=== PATIENT | female | born 1950 | race Two or more races ===

== ENCOUNTER 2019-05-27 17:38 | Inpatient (IN) | payer BC, OTHER ==
[~2019-05-27] VITALS: Ht 165.1 cm; Wt 75.3 kg
--- NOTE | 2019-05-27 17:40 | NUR ---
[place] [employer] [employer] C/O PALPITATION, SOB, ANXIETY, BG 132. PATIENT A/OX4, NO SOB NOTED, NEEDS ATTENDED, KEPT COMFORTABLE.
--- NOTE | 2019-05-27 17:50 | NUR ---
DR. GARCIA AT BEDSIDE FOR EVAL.
[2019-05-27 18:11] LABS: BASOPHILS % (AUTO) 0.4 % (0.0-2.0); EOSINOPHILS % (AUTO) 1.7 % (0.0-6.0); HEMATOCRIT 39 % (33-45); HEMOGLOBIN 13.3 g/dL (11.5-14.8); LYMPHOCYTES # (AUTO) 2.9 /CMM (0.8-4.8); LYMPHOCYTES % (AUTO) 38.2 % (20.0-44.0); MEAN CORPUSCULAR HGB CONC 34 g/dl (31.0-36.0); MEAN CORPUSCULAR VOLUME 89 fL (82-100); MONOCYTES # (AUTO) 0.6 /CMM (0.1-1.30); MONOCYTES % (AUTO) 7.6 % (2.0-12.0); NEUTROPHILS % (AUTO) 52.1 % (43.0-81.0); PLATELET COUNT (AUTO) 191 /CMM (150-450); RED BLOOD CELL COUNT(AUTO) 4.39 MIL/uL (4.0-5.2); WHITE BLOOD COUNT (AUTO) 7.6 K/uL (4.3-11.0)
[2019-05-27 18:18] LABS: CALCIUM, SERUM 8.6 mg/dL (8.5-10.1); CARBON DIOXIDE 25 mmol/L (21-32); CHLORIDE 104 mmol/L (98-107); CREATININE 0.7 mg/dL (0.6-1.3); GLUCOSE 164 mg/dL (74-106); POTASSIUM 4.1 mmol/L (3.5-5.1); SODIUM SERUM 137 mmol/L (136-145); UREA NITROGEN, BLOOD 21 mg/dL (7-18)
[2019-05-27] MEDS ORDERED: OMEP40CA13 PO (18:56)
--- NOTE | 2019-05-27 19:10 | NUR ---
Alvin costello in [facility] - 05/27/19 at 1910 by GURVINDER SERG NICK
--- NOTE | 2019-05-27 19:24 | NUR ---
PT RECEIVED FROM HANS GUIDO FOR BELLA.
[2019-05-27] MEDS ORDERED: ASPIRIN 325 MG TABLET ONE (19:29)
[2019-05-27] MEDS ORDERED: NITROGLYCERIN PACKET 1 GM PACKET TOP ONE (19:30)
[2019-05-27] MEDS ORDERED: IV NS 0.9% 1,000 ML BAG IV ONE (19:30)
[2019-05-27] MEDS ORDERED: ASPIRIN 325 MG TABLET PO ONE (19:30)
--- NOTE | 2019-05-27 19:35 | NUR ---
SPOKE WITH STEFANIE BIOINFORMATICS TEAM MEMBER FOR CLINICAL INFORMATION. PT IS TO BE TRABSFERRED. NO HOSPITAL INFO AT THIS TIME. WILL CALL BACK FOR INFO
--- NOTE | 2019-05-27 20:07 | NUR ---
NITRO BID REFUSED D/T NO CHEST PAIN AT THE TIME OF MED ADMINSTRATION
--- NOTE | 2019-05-27 22:02 | NUR ---
CALLED FOR TELE BED
--- NOTE | 2019-05-27 22:04 | NUR ---
RECIEVED BED 103T
--- NOTE | 2019-05-27 22:18 | NUR ---
REPORT GIVEN TO HANS WINKLER FOR BELLA.
--- NOTE | 2019-05-27 22:23 | NUR ---
RECEIVED REPORT FROM HANS GLASS IN ER.
--- NOTE | 2019-05-27 22:40 | NUR ---
PT TRANSPORTED TO UNIT ON [facility] WITH EMT AND RN AT BEDSIDE W/ [facility] PROTOCOL. NAD NOTED DURING TRANSPORT. PT AMBULATED FROM [facility] TO BED
--- NOTE | 2019-05-27 22:45 | NUR ---
RETAIL SALES ASSOCIATE SEASONAL OPENING NOTES: RECEIVED PT FROM ER VIA [facility] ACCOMPANIED BY HANS GUNTER. ADMISSION DX IS CHEST PAIN. PMD OF GERD. PT AMBULATED TO BED W/OUT ASSIST. NOTED W/ STEADY GAIT. PT IS A&OX4. PT STATED SHE HAS NO CHEST PAIN AT THIS TIME. NO ACUTE RESPIRATORY DISTRESS OR SOB NOTED. PT HAS LEFT WRIST IV #20, PATENT AND FLUSHING. ALL ORDERS NOTED AND WILL BE CARRIED OUT. SAFETY MEASURES IN PLACE, CALL LIGHT WITHIN REACH. WILL CONTINUE TO MONITOR.
[2019-05-27] MEDS ORDERED: HYDROCODONE/APAP 5/325MG 1 EACH TABLET PO PRN (23:30)
[2019-05-27] MEDS ORDERED: ACETAMINOPHEN 325 MG TABLET PO PRN (23:30)
[2019-05-28 00:11] VITALS: BP 117/86
[2019-05-28 04:16] LABS: BASOPHILS % (AUTO) 0.3 % (0.0-2.0); EOSINOPHILS % (AUTO) 2.2 % (0.0-6.0); HEMATOCRIT 41 % (33-45); HEMOGLOBIN 13.6 g/dL (11.5-14.8); LYMPHOCYTES # (AUTO) 2.4 /CMM (0.8-4.8); LYMPHOCYTES % (AUTO) 41.9 % (20.0-44.0); MEAN CORPUSCULAR HGB CONC 33 g/dl (31.0-36.0); MEAN CORPUSCULAR VOLUME 89 fL (82-100); MONOCYTES # (AUTO) 0.4 /CMM (0.1-1.30); MONOCYTES % (AUTO) 7.7 % (2.0-12.0); NEUTROPHILS # (AUTO) 2.7 /CMM (1.8-8.9); NEUTROPHILS % (AUTO) 47.9 % (43.0-81.0); PLATELET COUNT (AUTO) 177 /CMM (150-450); WHITE BLOOD COUNT (AUTO) 5.7 K/uL (4.3-11.0)
[2019-05-28 04:28] LABS: CALCIUM, SERUM 8.7 mg/dL (8.5-10.1); CREATININE 0.7 mg/dL (0.6-1.3); POTASSIUM 4.5 mmol/L (3.5-5.1)
--- NOTE | 2019-05-28 06:59 | NUR ---
LEAD ANDROID DEVELOPER CLOSING NOTES: PT RESTING IN BED A&OX4 ON TELE MONITOR SHOWING SINUS RHYTHM. PT AMBULATORY. NPO TODAY EXCEPT MEDS. HAS LABS IN AM AND CORONARY CT ANGIO TODAY. SAFETY MEASURES IN PLACE, CALL LIGHT WITHIN REACH. WILL ENDORSE TO AM NURSE FOR BELLA.
--- NOTE | 2019-05-28 07:10 | NUR ---
RN OPENING NOTE: RECEIVED PATIENT IN BED. AWAKE, ALERT AND ORIENTED X4. ON TELE MONITOR WITH SINUS RHYTHM WITH PVC NOTED. NO SOB, NOT IN RESPIRATORY DISTRESS, ON ROOM AIR WITH SATURATION >92%. IV SITE ON L HAND G20 SALINE LOCK CLEAN, DRY AND PATENT. PATIENT ON NPO EXCEPT MEDICATIONS FOR UPCOMING CT ANGIO WITH 3D IMAGE SCHEDULED. CONSENTS TO BE SIGNED AFTER DR. AARON SEES PATIENT. NO PAIN REPORTED NOR NOTED. PATIENT DENIES ANY CHEST PAIN. CALL LIGHT WITHIN REACH. BED LOCKED, LOW AND AT SEMI-BERRY'S POSITION. SIDE RAILS UP X2. WILL CONTINUE TO MONITOR.
[2019-05-28 08:00] VITALS: BP 131/70
[2019-05-28] MEDS: PANTOPRAZOLE 40 MG TABLET.DR PO SCH (08:57)
[2019-05-28] MEDS: ASPIRIN 81 MG TAB.CHEW PO SCH (08:57)
--- NOTE | 2019-05-28 09:15 | NUR ---
RN NOTE: PATIENT WAS SEEN BY DR. AARON AND PROCEDURE WAS EXPLAINED. PATIENT ASKED NURSE TO RECAP THE PURPOSE OF THE PROCEDURE, NURSE EXPLAINED AND OFFERED TO CONTACT PHYSICIAN AGAIN IF PATIENT HAS ANY ADDITIONAL CONCERNS AND QUESTIONS REGARDING THE PROCEDURE. PATIENT DECLINED AND SIGNED THE CONSENT FORMS.
[2019-05-28] MEDS ORDERED: IOHEXOL-350 100 ML VIAL IV ONE (11:53)
[2019-05-28] MEDS ORDERED: METOPROLOL TARTRATE INJ 5 MG/5 ML AMPUL ONE (11:54)
[2019-05-28] MEDS ORDERED: IV NS 0.9% 250 ML IV ONE (11:54)
[2019-05-28 12:00] VITALS: BP 110/71
[2019-05-28] MEDS ORDERED: NITROGLYCERIN 0.4 MG/TAB BOTTLE SL ONE (12:00)
[2019-05-28] MEDS ORDERED: IV NS 0.9% 500 ML IV PRN (12:00)
[2019-05-28] MEDS ORDERED: METOPROLOL TARTRATE INJ 5 MG/5 ML AMPUL IVP PRN (12:00)
--- NOTE | 2019-05-28 13:00 | NUR ---
RN NOTE: PATIENT CAME BACK FROM CTA WITH 3D IMAGE PROCEDURE IN STABLE CONDITION.
[2019-05-28 16:00] VITALS: BP 104/55
--- NOTE | 2019-05-28 19:10 | NUR ---
RN CLOSING NOTE: PATIENT IN BED. AWAKE, ALERT AND ORIENTED X4. ON TELE MONITOR WITH SINUS RHYTHM WITH PVC NOTED. NO SOB, NOT IN RESPIRATORY DISTRESS, ON ROOM AIR WITH SATURATION >92%. IV SITE ON L HAND G20 AND LAC G18 SALINE LOCK CLEAN, DRY AND PATENT. ON REGULAR DIET POST CTA PROCEDURE. NO PAIN REPORTED NOR NOTED. PATIENT DENIES ANY CHEST PAIN. CALL LIGHT WITHIN REACH. BED LOCKED, LOW AND AT SEMI-BERRY'S POSITION. SIDE RAILS UP X2. ENDORSED TO ONCOMING SHIFT FOR BELLA.
--- NOTE | 2019-05-28 19:10 | NUR ---
HOME ENERGY AUDITOR OPENING NOTES RECEIVED PATIENT IN BED AWAKE ALERT AND ORIENTED X4, RESPIRATIONS EVEN AND UNLABORED WITH EQUAL RISE AND FALL OF CHEST, DENIES ANY PAIN OR DISCOMFORT AT THIS TIME , IV SITE TO LEFT WRIST AND LEFT AC INTACT AND PATENT, NO REDNESS, NO INFILTRATION PRESENT, ON CEMENTER MACHINE APPLICATOR SR WITH OCCASIONAL PVC. DENIES CHEST PAIN, ORIENTED TO STAFF AND CALL LIGHT KEPT WITHIN REACH, SAFETY PRECAUTIONS IN PLACE, ALL NEEDS ATTENDED WILL CONTINUE TO MONITOR.
[2019-05-28 20:00] VITALS: BP 118/81
[2019-05-28] MEDS ORDERED: ATORVASTATIN 10 MG TABLET PO SCH (22:00)
[2019-05-29] VITALS: BP 101/59
[2019-05-29 04:00] VITALS: BP 113/65
[2019-05-29 04:27] VITALS: BP 113/65
--- NOTE | 2019-05-29 06:17 | NUR ---
GEODETIC COMPUTATOR CLOSING NOTES PATIENT IN BED AWAKE ALERT AND ORIENTED X4, RESPIRATIONS EVEN AND UNLABORED WITH EQUAL RISE AND FALL OF CHEST, DENIES ANY PAIN OR DISCOMFORT AT THIS TIME , IV SITE TO LEFT WRIST AND LEFT AC INTACT AND PATENT, NO REDNESS, NO INFILTRATION PRESENT, ON MANAGER FOOD BEVERAGE SR WITH PVC'S 70, NO DISTRESS PRESENT, NO C/O OF CHEST PAIN THROUGHOUT SHIFT. CALL LIGHT KEPT WITHIN REACH, SAFETY PRECAUTIONS IN PLACE, ALL NEEDS WERE ATTENDED WILL CONTINUE TO MONITOR AND ENDORSE TO NEXT SHIFT.
--- NOTE | 2019-05-29 07:12 | NUR ---
CHARGE MACHINE OPERATOR OPENING NOTES RECEIVED PATIENT FROM PRODUCE FIELD MERCHANDISER NURSE. PATIENT IS ASLEEP IN BED. RESPIRATIONS ARE EVEN AND UNLABORED. PATIENT IS ON ROOM AIR, SATURATING WELL. NO SIGNS AND SYMPTOMS OF RESPIRATORY DISTRESS NOTED. PATIENT IS ON TELE MONITOR, SINUS RHYTHM WITH PVC NOTED ON THE MONITOR. PATIENT IS AMBULATORY WITH ASSIST. IV ON LEFT WRIST #20 AND LEFT AC #18. INTACT, PATENT AND FLUSHED WELL. NO SIGNS AND SYMPTOMS OF INFECTION PRESENT. VITAL SIGNS ARE STABLE, PENDING CARDIAC CONSULT. SAFETY MAINTAINED, CALL LIGHT WITHIN REACH. WILL CONTINUE TO MONITOR.
[2019-05-29] MEDS: PANTOPRAZOLE 40 MG TABLET.DR PO SCH (07:30)
[2019-05-29 08:00] VITALS: BP 102/46
[2019-05-29] MEDS: ASPIRIN 81 MG TAB.CHEW PO SCH (08:14)
--- NOTE | 2019-05-29 08:22 | NUR ---
PATIENT REFUSED PROTONIX, STATES SHE TOOK HER OWN ONE FROM HOME.
--- NOTE | 2019-05-29 10:02 | NUR ---
Social service consult requested by MD for homelessness. Per chart review and MD notes, pt is a 68-year-old female [place] for evaluation of chest pain/ shortness of breath and palpitations that onset prior to arrival. Pt complained of mild, constant, pressure-like, non-radiating chest pain present across her chest that onset at the same time. WELFARE INVESTIGATOR met with the pt bedside. WELFARE INVESTIGATOR introduced self and explained her role. Pt. is alert and oriented x 4. Pt. was sitting upright on her bed in her hospital go. Pt states, she lives with friends, in motels or with her daughter in [place]. However, pt states she doesn't go too often to her daughter's because her language specialist is in [facility]. Pt declined alf placement and resources and stated she will go to a motel. Pt would like to milk pickup truck driver her car which is located at [address] [place] [address] in [place]. WELFARE INVESTIGATOR informed pt she will arrange taxi transportation for her. Pt denies any drug, alcohol and cigarette use. Pt reports to not have any psychiatric diagnoses. Pt. denies suicidal/homicidal ideations and visual/auditory hallucinations at this time. Pt receives $650 per month in SSI and $90/month in food stamps. No other social service needs are requested at this time. WELFARE INVESTIGATOR contacted nursing stranding supervisor Silvia and requested for taxi voucher for the pt upon discharge. WELFARE INVESTIGATOR updated MUMTAZ CRRyan Cooper and pt's HANS Vasques with pt's discharge plan. Homeless patient waiver form was placed in pt's chart for pt to sign upon discharge. HANS Vasques is aware of the form. WELFARE INVESTIGATOR is available, if needed.
--- NOTE | 2019-05-29 13:30 | NUR ---
PT REFUSED TAKING A PICTURE FOR THE CHART OF HER BACK. CLAIMED SHE HAS NO WOUND THERE.
--- NOTE | 2019-05-29 14:00 | NUR ---
RN CLOSING NOTES PATIENT HAS BEEN DISCHARGED. PATIENT IS IN STABLE CONDITION, DISCHARGE ORDERS ARE IN PLACE, EDUCATION MATERIAL PROVIDED AND DISCHARGE PAPERWORK SIGNED. DIGITAL COURT REPORTER SAW THE PATIENT AND ASSESSED NEEDS. PATIENT WAS SENT TO A HOTEL ROOM VIA TAXI. TAXI VOUCHER WAS PROVIDED AND PATIENT WAS WALKED OUT TO THE TAXI. GREEN TAXI PICKED UP THE PATIENT. ALL PATIENT NEEDS WERE MET, SAFETY MAINTAINED. INSTRUCTED TO FOLLOW UP WITH THE PCP.
== END 2019-05-29 14:42 | disposition home or self-care (01) | DRG 392 ==
LOC: ER 17:39 → TELE1 22:05 → MEDSG1 05-29 08:57
PROVIDERS: ADMIT Internal Medicine; ATTEND Internal Medicine
DX: K21.9 Gastro-esophageal reflux disease without esophagitis (principal); E78.5 Hyperlipidemia, unspecified; Z82.49 Family history of ischemic heart disease and other diseases of the circulatory system; Z83.3 Family history of diabetes mellitus
CPT/HCPCS: 36415; 71045-TC; 75574; 80048-TC; 80061-TC; 84484-TC; 85025-TC; 85378-TC; 87081-TC; G0378; J3490; J7030; J7050; Q9967

== ENCOUNTER 2021-05-17 17:16 | Emergency (ER) | payer BC, OTHER ==
[~2021-05-17] VITALS: Ht 167.6 cm; Wt 74.8 kg
[~2021-05-17 17:16] MED LIST: OMEP40CA21 PO
--- NOTE | 2021-05-17 18:05 | NUR ---
BIBS C/O LEFT SIDED BODY PAIN AFTER FALLING YESTERDAY ON AN ESCALATOR. PT HAS MINOR ABRASION ON THE LEFT SIDE OFHER BODY. BLOOD PRESSURE ELEVATED, MD AWARE. BREATHING IS EVEN AND UNALBORED.
--- NOTE | 2021-05-17 18:10 | NUR ---
IV ESTBALISHED L AC 20G, LABS WERE DRAWN AND COLLECTED AT BEDSIDE, CONVERTED TO SALINE LOCK.
[2021-05-17 18:29] LABS: BASOPHILS % (AUTO) 0.3 % (0.0-2.0); EOSINOPHILS % (AUTO) 1.3 % (0.0-6.0); HEMATOCRIT 43 % (33-45); HEMOGLOBIN 14.3 g/dL (11.5-14.8); LYMPHOCYTES # (AUTO) 2.2 K/uL (0.8-4.8); LYMPHOCYTES % (AUTO) 29.2 % (20.0-44.0); MEAN CORPUSCULAR HGB CONC 33 g/dl (31.0-36.0); MEAN CORPUSCULAR VOLUME 92 fL (82-100); MONOCYTES # (AUTO) 0.6 K/uL (0.1-1.30); MONOCYTES % (AUTO) 7.8 % (2.0-12.0); NEUTROPHILS # (AUTO) 4.6 K/uL (1.8-8.9); NEUTROPHILS % (AUTO) 61.4 % (43.0-81.0); PLATELET COUNT (AUTO) 227 K/uL (150-450); RED BLOOD CELL COUNT(AUTO) 4.74 MIL/uL (4.0-5.2); WHITE BLOOD COUNT (AUTO) 7.6 K/uL (4.3-11.0)
[2021-05-17] MEDS ORDERED: KETOROLAC TROMETHAMINE INJ 30 MG/ML VIAL IV ONE (18:30)
[2021-05-17] MEDS ORDERED: KETOROLAC TROMETHAMINE 15 MG/ML VIAL ONE (18:36)
[2021-05-17 18:44] LABS: CALCIUM, SERUM 9.2 mg/dL (8.5-10.1); CARBON DIOXIDE 31 mmol/L (21-32); CHLORIDE 105 mmol/L (98-107); CREATININE 0.7 mg/dL (0.6-1.3); GLUCOSE 128 mg/dL (74-106); SODIUM SERUM 141 mmol/L (136-145); UREA NITROGEN, BLOOD 9 mg/dL (7-18)
[2021-05-17] MEDS ORDERED: IBUP-1957 PO (19:24)
[2021-05-17] MEDS ORDERED: ACET-2605 PO (19:24)
--- NOTE | 2021-05-17 19:40 | NUR ---
IV removed. Catheter intact and site benign. Pressure and 4x4 applied to site. No bleeding noted.Patient discharged to home in stable condition. Written and verbal after care instructions given. Patient verbalizes understanding of instruction.
[2021-05-18 01:04] VITALS: BP 146/88
== END 2021-05-17 19:40 | disposition home or self-care (01) ==
LOC: ER 17:17
DX: S20.212A Contusion of left front wall of thorax, initial encounter (principal); S80.212A Abrasion, left knee, initial encounter; S80.211A Abrasion, right knee, initial encounter; Z60.2 Problems related to living alone; Z79.1 Long term (current) use of non-steroidal anti-inflammatories (NSAID); W10.0XXA Fall (on)(from) escalator, initial encounter; Y93.89 Activity, other specified; Y92.59 Other trade areas as the place of occurrence of the external cause; Y99.8 Other external cause status
CPT/HCPCS: 36415; 71045; 80048; 83880; 84484; 85025; 93005 ×2; 96374; 99285; J1885